=== PATIENT | female | born 1970 | race Caucasian/White ===

== ENCOUNTER 2022-10-20 19:19 | Emergency (ER) | payer OTHER, SELFPAY ==
[2022-10-20 19:25] VITALS: BP 125/91; PULSE 65; RESP 16; TEMP 36.2; O2SAT 100; BMI 30.6
--- NOTE | 2022-10-20 19:28 | ECG_ITS ---
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 Measurements Intervals [place] Rate: 66 P: 73 [place]: 160 QRS: 51 QRSD: 82 T: 61 QT: 413 QTc: 434 Interpretive Statements SINUS RHYTHM No previous ECG available for comparison Electronically Signed On 10-21-2022 8:55:23 ANALYSIS ANALYST by Lasohnda Manning M.D. [id number]
--- NOTE | 2022-10-20 19:55 | XRR_ITS ---
PROCEDURE INFORMATION: Exam: XR Chest Exam date and time: 10/20/2022 8:01 PM Age: 52 years old Clinical indication: Cough and shortness of breath; Sternal or substernal pain and left-sided; Additional info: Cough, chest pain TECHNIQUE: Imaging protocol: Radiologic exam of the chest. Views: 1 view. COMPARISON: No relevant prior studies available. FINDINGS: Lungs: Unremarkable. No consolidation. Pleural spaces: Unremarkable. No pleural effusion. No pneumothorax. Heart/Mediastinum: Unremarkable. No cardiomegaly. Bones/joints: Unremarkable. XR/XR chest 1V portable [id number] IMPRESSION: No acute findings.
[2022-10-20 20:24] LABS: Basophils # 0.1 10^3/uL (0.0-0.1); Basophils % 0.6 %; Eosinophils # 0.2 10^3/uL (0.0-0.8); Hematocrit 41.4 % (37.0-47.0); Lymphocytes # 3.3 10^3/uL (0.8-4.8); Lymphocytes % 40.8 %; Mean Corpuscular HGB Conc 33.8 g/dL (30.0-36.0); Mean Corpuscular Volume 88.8 fl (81-99); Mean Platelet Volume 10.7 fL (7.4-10.4); Monocytes # 0.6 10^3/uL (0.2-0.9); Monocytes % 7.7 %; Neutrophils # 3.87 10^3/uL (1.8-7.7); Neutrophils % 48.6 %; Nucleated Red Blood Cells % 0 %; Platelet Count 330 10^3/cmm (130-400); Red Blood Count 4.66 10^6/uL (4.1-5.3); Red Cell Distribution Width 12.6 % (12.1-15.1)
[2022-10-20 20:48] LABS: Alanine Aminotransferase 23 U/L (0-33); Albumin Level 4.6 g/dL (3.5-5.2); Alkaline Phosphatase 82 U/L (35-105); Anion Gap 18.4 (5-19); Aspartate Amino Transferase 17 U/L (0-32); Blood Urea Nitrogen 10 mg/dL (6-20); Calcium 10.1 mg/dL (8.5-10.5); Carbon Dioxide 23 mmol/L (22-29); Chloride 102 mmol/L (98-107); Globulin 2.2 g/dL (1.3-4.6); Glomerular Filtration Rate 105.8 mL/min (90-130); Glucose 111 mg/dL (65-115); Osmolality Calculated 290 mOsm/kg (285-295); Potassium 3.4 mmol/L (3.5-5.1); Sodium 140 mmol/L (136-145); Total Bilirubin 0.6 mg/dL (0.15-1.2); Total Protein 6.8 g/dL (6.6-8.7)
[2022-10-20 21:02] LABS: Troponin(5th) Baseline 7 ng/L (0-10)
--- NOTE | 2022-10-20 21:11 | ED_ITS ---
HPI - Chest Pain General: Chief Complaint: Chest Pain Stated Complaint: cp Time Seen by Provider: 10/20/22 19:24 Source: patient Mode of arrival: ambulatory Limitations: no limitations History of Present Illness: This 52-year-old female presents to the ER with cough and associated left-sided chest pain that started this morning. Her cough dates back to about 6 days ago following which she saw her primary care physician and she was started on doxycycline and Advair. She notes that the cough is productive of some brownish sputum and her chest hurts when she takes a deep breath. This concerned patient, making her present to the ER for evaluation. She denies fever, nausea, vomiting or any other systemic symptoms. Review of Systems Const: Denies: chills, body aches or change in appetite Eyes: Denies: change in vision or eye discharge ENMT: Denies: throat pain, dental pain or nasal discharge Card: Reports: chest pain (Associated with pain); Denies: lightheadedness Resp: Reports: productive cough and pain on inspiration : Denies: dysuria Musc: Denies: neck pain or back pain Neuro: Denies: headache(s) or weakness in extremities Psych: Denies: depression Lc/Lymph: Denies: easy bruising All/Imm: Denies: urticaria, tongue swelling or facial swelling Physical Exam Const: COMMON NORMALS: no acute distress, patient oriented x3, no limitations and alert HENMT: COMMON NORMALS: normocephalic HEAD & SCALP: normocephalic Eye: COMMON NORMALS: EOMs intact bilaterally Neck/C-Spine: COMMON NORMALS: full ROM and supple Chest: COMMONS NORMALS: normal inspection of the chest Resp: COMMON NORMALS: normal respiratory effort, No retractions, No use of accessory muscles and clear to auscultation bilaterally AUSCULTATION: clear to auscultation bilaterally OTHER: Tenderness on palpation of left anterior chest wall. Cardio: COMMON NORMALS: regular rate, regular rhythm and No murmurs present (Cardio) RATE: regular rate RHYTHM: regular rhythm GI: COMMON NORMALS: Normal to inspection, nondistended, normoactive bowel sounds present and non-tender : COMMON NORMALS: Yes no CVA tenderness BLADDER/KIDNEY EXAM: Yes no CVA tenderness Back/Pelvis: COMMON NORMALS: no CVA tenderness and no thoracic nor lumbar tenderness Extremity: GENERAL: Yes normal exam except as noted Neuro: COMMON NORMALS: patient oriented x3 and no focal motor deficits SENSORIUM/ORIENTATION: Yes alert Psych: COMMON NORMALS: mental status grossly normal and cooperative Course Vital Signs: Vital signs: Vital Signs Temperature 97.1 F L 10/20/22 19:25 Pulse Rate 65 10/20/22 19:25 Respiratory Rate 16 10/20/22 19:25 Blood Pressure 125/91 10/20/22 19:25 Pulse Oximetry 100 10/20/22 19:25 Oxygen Delivery Me thod 10/20/22 19:25 MDM - Chest Pain Medical Decision Making Medical decision making: History as above. Patient's left-sided chest pain is reproducible on palpation. It is worsened by deep breath and the pain is associated with cough. She is currently on treatment for acute bronchitis. White count is normal with no left shift. Given that the presumed pain started this morning and troponin is negative, there is nothing to suggest at this time that she is having an acute coronary syndrome. EKG is negative for any acute ischemic changes. She was advised to finish the course of antibiotics that she has. She will be given anti- inflammatories for the pain. Reasons to return were discussed. Patient verbalized understanding and agrees with the plan. Lab Data 10/20/22 20:12 10/20/22 20:12 Radiology Impressions Chest X-Ray 10/20/22 19:55 IMPRESSION: No acute findings. Laboratory Results WBC 8.0 10^3/uL (4.0-10.0) 10/20/22 20:12 RBC 4.66 10^6/uL (4.1-5.3) 10/20/22 20:12 Hgb 14.0 g/dL (11.5-15.3) 10/20/22 20:12 Hct 41.4 % (37.0-47.0) 10/20/22 20:12 MCV 88.8 fl (81-99) 10/20/22 20:12 MCH 30.0 pg (28.0-34.0) 10/20/22 20:12 MCHC 33.8 g/dL (30.0-36.0) 10/20/22 20:12 RDW 12.6 % (12.1-15.1) 10/20/22 20:12 Plt Count 330 10^3/cmm (130-400) 10/20/22 20:12 MPV 10.7 fL (7.4-10.4) H 10/20/22 20:12 Neut % (Auto) 48.6 % 10/20/22 20:12 Lymph % (Auto) 40.8 % 10/20/22 20:12 [place] % (Auto) 7.7 % 10/20/22 20:12 Eos % (Auto) 2.0 % 10/20/22 20:12 Baso % (Auto) 0.6 % 10/20/22 20:12 Neut # (Auto) 3.87 10^3/uL (1.8-7.7) 10/20/22 20:12 Lymph # (Auto) 3.3 10^3/uL (0.8-4.8) 10/20/22 20:12 [place] # (Auto) 0.6 10^3/uL (0.2-0.9) 10/20/22 20:12 Eos # (Auto) 0.2 10^3/uL (0.0-0.8) 10/20/22 20:12 Baso # (Auto) 0.1 10^3/uL (0.0-0.1) 10/20/22 20:12 Nucleated RBC % (auto) 0 % 10/20/22 20: Nucleated RBCs # 0.0 /100WBC 10/20/22 20:12 Sodium 140 mmol/L (136-145) 10/20/22 20:12 Potassium 3.4 mmol/L (3.5-5.1) L 10/20/22 20:12 Chloride 102 mmol/L (98-107) 10/20/22 20:12 Carbon Dioxide 23 mmol/L (22-29) 10/20/22 20:12 Anion Gap 18.4 (5-19) 10/20/22 20:12 BUN 10 mg/dL (6-20) 10/20/22 20:12 Creatinine 0.6 mg/dL (0.5-0.9) 10/20/22 20:12 GFR Calculation 105.8 mL/min (90-130) 10/20/22 20:12 Glucose 111 mg/dL (65-115) 10/20/22 20:12 Calculated Osmolality 290 mOsm/kg (285-295) 10/20/22 20:12 Calcium 10.1 mg/dL (8.5-10.5) 10/20/22 20:12 Total Bilirubin 0.6 mg/dL (0.15-1.2) 10/20/22 20:12 AST 17 U/L (0-32) 10/20/22 20:12 ALT 23 U/L (0-33) 10/20/22 20:12 Alkaline Phosphatase 82 U/L (35-105) 10/20/22 20:12 Troponin T Baseline 7 ng/L (0-10) 10/20/22 20:12 Troponin T 120 Minute 6.00 ng/L (0-10) 10/20/22 22:14 Delta Troponin T -1.0 ABS# (0-10) L 10/20/22 22:14 Total Protein 6.8 g/dL (6.6-8.7) 10/20/22 20:12 Albumin 4.6 g/dL (3.5-5.2) 10/20/22 20:12 Globulin 2.2 g/dL (1.3-4.6) 10/20/22 20:12 Discharge Plan Discharge Patient Disposition: Home Clinical Impression: Pleurisy without effusion, Acute bronchitis Condition: Stable Prescriptions: New ketorolac 10 mg tablet 10 mg PO Q6H PRN (Reason: pain) 1 Days Qty: 20 0RF Discharge Orders: Discharge ED (Routine); Ordered 10/20/22 Ordered By: Audelia Albrecht Discharge Diet: Usual diet Discharge Activity: Resume usual activity Patient Instructions: Opioid Safety, Pain Management Activity Restrictions/Additional Instructions: Take ketorolac as needed for pain. Finish up the course of doxycycline you already have. Follow-up with your primary care physician in 3 to 5 days for reevaluation. Return with new or worsening symptoms. 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
--- NOTE | 2022-10-20 21:14 | W.ED.CHESTPA ---
HPI - Chest Pain General: Chief Complaint: Chest Pain Stated Complaint: cp Time Seen by Provider: 10/20/22 19:24 History of Present Illness: This 52-year-old female presents to the ER complaining of cough and associated chest pain that started about 7 days ago. Patient was seen by her primary care physician and diagnosed with bronchitis and was started on doxycycline and Advair. Cough is now productive of brownish sputum and her chest hurts when she takes a deep breath. Otherwise, patient has no nausea, vomiting, diarrhea or any other pertinent systemic symptoms. Associated symptoms: Reports dyspnea Review of Systems Const: Denies: chills, body aches or change in appetite Eyes: Denies: change in vision or eye discharge ENMT: Denies: throat pain, dental pain or nasal discharge Card: Reports: chest pain Resp: Reports: dyspnea and productive cough : Denies: dysuria Musc: Denies: neck pain or back pain Neuro: Denies: headache(s) or weakness in extremities Psych: Denies: depression Lc/Lymph: Denies: easy bruising All/Imm: Denies: urticaria, tongue swelling or facial swelling Physical Exam Const: COMMON NORMALS: no acute distress, patient oriented x3, no limitations and alert HENMT: COMMON NORMALS: normocephalic HEAD & SCALP: normocephalic Eye: COMMON NORMALS: EOMs intact bilaterally Neck/C-Spine: COMMON NORMALS: full ROM and supple Chest: COMMONS NORMALS: normal inspection of the chest OTHER: Tenderness on palpation of the left anterior chest wall. There is no redness, swelling or sign of trauma/inflammation. Resp: COMMON NORMALS: normal respiratory effort, No retractions, No use of accessory muscles and clear to auscultation bilaterally AUSCULTATION: clear to auscultation bilaterally Cardio: COMMON NORMALS: regular rate, regular rhythm and No murmurs present (Cardio) RATE: regular rate RHYTHM: regular rhythm GI: COMMON NORMALS: Normal to inspection, nondistended, normoactive bowel sounds present and non-tender : COMMON NORMALS: Yes no CVA tenderness BLADDER/KIDNEY EXAM: Yes no CVA tenderness Back/Pelvis: COMMON NORMALS: no CVA tenderness and no thoracic nor lumbar tenderness Extremity: GENERAL: Yes normal exam except as noted Neuro: COMMON NORMALS: patient oriented x3 and no focal motor deficits SENSORIUM/ORIENTATION: Yes alert Psych: COMMON NORMALS: mental status grossly normal and cooperative Course Vital Signs: Vital signs: Vital Signs Temperature 97.1 F L 10/20/22 19:25 Pulse Rate 65 10/20/22 19:25 Respiratory Rate 16 10/20/22 19:25 Blood Pressure 125/91 10/20/22 19:25 Pulse Oximetry 100 10/20/22 19:25 Oxygen Delivery Me thod 10/20/22 19:25 MDM - Chest Pain Medical Decision Making Medical decision making: Patient's chest pain is associated with cough. EKG is negative for any acute ischemic changes. Initial troponin and repeat troponin are not consistent with acute coronary syndrome. She was discharged home to follow-up with her primary care physician. Return instructions provided. Lab Data 10/20/22 20:12 10/20/22 20:12 Radiology Impressions Chest X-Ray 10/20/22 19:55 IMPRESSION: No acute findings. Laboratory Results WBC 8.0 10^3/uL (4.0-10.0) 10/20/22 20:12 RBC 4.66 10^6/uL (4.1-5.3) 10/20/22 20:12 Hgb 14.0 g/dL (11.5-15.3) 10/20/22 20:12 Hct 41.4 % (37.0-47.0) 10/20/22 20:12 MCV 88.8 fl (81-99) 10/20/22 20:12 MCH 30.0 pg (28.0-34.0) 10/20/22 20:12 MCHC 33.8 g/dL (30.0-36.0) 10/20/22 20:12 RDW 12.6 % (12.1-15.1) 10/20/22 20:12 Plt Count 330 10^3/cmm (130-400) 10/20/22 20:12 MPV 10.7 fL (7.4-10.4) H 10/20/22 20:12 Neut % (Auto) 48.6 % 10/20/22 20:12 Lymph % (Auto) 40.8 % 10/20/22 20:12 [place] % (Auto) 7.7 % 10/20/22 20:12 Eos % (Auto) 2.0 % 10/20/22 20:12 Baso % (Auto) 0.6 % 10/20/22 20:12 Neut # (Auto) 3.87 10^3/uL (1.8-7.7) 10/20/22 20:12 Lymph # (Auto) 3.3 10^3/uL (0.8-4.8) 10/20/22 20:12 [place] # (Auto) 0.6 10^3/uL (0.2-0.9) 10/20/22 20:12 Eos # (Auto) 0.2 10^3/uL (0.0-0.8) 10/20/22 20:12 Baso # (Auto) 0.1 10^3/uL (0.0-0.1) 10/20/22 20:12 Nucleated RBC % (auto) 0 % 10/20/22 20:12 Nucleated RBCs # 0.0 /100WBC 10/20/22 20:12 Sodium 140 mmol/L (136-145) 10/20/22 20:12 Potassium 3.4 mmol/L (3.5-5.1) L 10/20/22 20:12 Chloride 102 mmol/L (98-107) 10/20/22 20:12 Carbon Dioxide 23 mmol/L (22-29) 10/20/22 20:12 Anion Gap 18.4 (5-19) 10/20/22 20:12 BUN 10 mg/dL (6-20) 10/20/22 20:12 Creatinine 0.6 mg/dL (0.5-0.9) 10/20/22 20:12 GFR Calculation 105.8 mL/min (90-130) 10/20/22 20:12 Glucose 111 mg/dL (65-115) 10/20/22 20:12 Calculated Osmolality 290 mOsm/kg (285-295) 10/20/22 20:12 Calcium 10.1 mg/dL (8.5-10.5) 10/20/22 20:12 Total Bilirubin 0.6 mg/dL (0.15-1.2) 10/20/22 20:12 AST 17 U/L (0-32) 10/20/22 20:12 ALT 23 U/L (0-33) 10/20/22 20:12 Alkaline Phosphatase 82 U/L (35-105) 10/20/22 20:12 Troponin T Baseline 7 ng/L (0-10) 10/20/22 20:12 Troponin T 120 Minute 6.00 ng/L (0-10) 10/20/22 22:14 Delta Troponin T -1.0 ABS# (0-10) L 10/20/22 22:14 Total Protein 6.8 g/dL (6.6-8.7) 10/20/22 20:12 Albumin 4.6 g/dL (3.5-5.2) 10/20/22 20:12 Globulin 2.2 g/dL (1.3-4.6) 10/20/22 20:12 Discharge Plan Discharge Patient Disposition: Home Clinical Impression: Pleurisy without effusion, Acute bronchitis Condition: Stable Discharge Orders: Discharge ED (Routine); Ordered 10/20/22 Ordered By: Audelia Albrecht Discharge Diet: Usual diet Discharge Activity: Resume usual activity Patient Instructions: Opioid Safety, Pain Management Activity Restrictions/Additional Instructions: Take ketorolac as needed for pain. Finish up the course of doxycycline you already have. Follow-up with your primary care physician in 3 to 5 days for reevaluation. Return with new or worsening symptoms. 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
--- NOTE | 2022-10-20 22:01 | ECG_ITS ---
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 Measurements Intervals [place] Rate: 65 P: 63 [place]: 166 QRS: 59 QRSD: 73 T: 67 QT: 416 QTc: 434 Interpretive Statements SINUS RHYTHM No previous ECG available for comparison Electronically Signed On 10-20-2022 22:42:59 CARDIOLOGY COORDINATOR by Lashonda Manning M.D. [id number]
== END 2022-10-20 22:47 | disposition home or self-care (01) ==
PROVIDERS: Emergency Provider Family Medicine
DX: R09.1 Pleurisy (principal); J20.9 Acute bronchitis, unspecified
CPT/HCPCS: 36415; 71045; 80053; 84484; 85025; 93005; 99285